=== PATIENT | male | born 1975 ===

== ENCOUNTER 2017-02-25 16:34 | Emergency (ER) | payer OTHER ==
[~2017-02-25 16:34] MED LIST: fentaNYL-PF 50 mCg/mL 2 mL Inj IVPUSH PRN
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
[2017-02-25] MEDS ORDERED: fentaNYL-PF 50 mCg/mL 2 mL Inj IVPUSH PRN (16:40)
[2017-02-25] MEDS ORDERED: Ondansetron 2 mg/mL 2 mL Inj IVPUSH PRN (16:40)
[2017-02-25] MEDS ORDERED: Ketamine 100 mg/mL 5 mL Inj IV ONE (16:45)
[2017-02-25] MEDS ORDERED: fentaNYL-PF 50 mCg/mL 2 mL Inj ONE ×2 (16:45→16:47)
[2017-02-25 16:55] LABS: BASOPHILS % (AUTO) 0.4 % (0-3); EOSINOPHILS % (AUTO) 1.1 % (0-5); MONOCYTES % (AUTO) 6.4 % (4-12); Mean Corpuscular Hemoglobin 29.8 pg (27.0-35.0); Mean Corpuscular Volume 87.2 fL (81-100); NEUTROPHILS % (AUTO) 53.2 % (40-74); Platelet Count 259 bil/L (150-400)
--- NOTE | 2017-02-25 16:56 | DRSVH ---
PROCEDURE: X-RAY CHEST ONE VIEW, PORTABLE ([id number]) INDICATIONS: Trauma TECHNIQUE: One view of the chest was acquired. COMPARISON: None. FINDINGS: Surgical changes and devices: The patient is intubated and the endotracheal tube is 7.6 cm above the radha. Lungs and pleura: No pleural effusions or pneumothorax. Lungs are clear. Mediastinum: Mediastinal contours appear normal. Heart size is normal. Bones and chest wall: No suspicious bony lesions. Overlying soft tissues appear unremarkable. IMPRESSION: Status post intubation. No acute cardiopulmonary findings. Dictated by: Nela Owusu M.D. on 02/25/2017 at 16:54 Approved by: Nela Owusu M.D. on 02/25/2017 at 16:55
[2017-02-25] MEDS ORDERED: 0.9% Sodium Chloride 100 ML IV ONE (16:58)
[2017-02-25] MEDS ORDERED: Tranexamic Acid 100 mg/mL 10 mL Inj ONE (16:58)
--- NOTE | 2017-02-25 16:59 | DRSVH ---
PROCEDURE: X-RAY PELVIS, ONE OR TWO VIEWS ([id number]) INDICATIONS: Trauma TECHNIQUE: Single view(s) of the pelvis acquired. COMPARISON: None. FINDINGS: Bones: There is 3.3 cm diastasis of the symphysis pubis. No other fractures visualized. However, the left sacroiliac joint is poorly characterized. Soft tissues: Visualized bowel gas pattern is normal. No suspicious soft tissue calcifications. IMPRESSION: Marked symphysis pubis diastasis. Although no other fractures are visualized, this is field ited study, and diastasis of the sacroiliac joint or fracture through the sacrum is suspected consist ent with an open book fracture. CT of the pelvis recommended. Dictated by: Nela Owusu M.D. on 02/25/2017 at 16:55 Approved by: Nela Owusu M.D. on 02/25/2017 at 16:57
[2017-02-25 17:00] VITALS: O2SAT 94
[2017-02-25 17:26] LABS: Lipase 112 U/L (13-60)
[2017-02-25] MEDS ORDERED: 0.9% Sodium Chloride 250 ML IV ONE (17:35)
[2017-02-25] MEDS ORDERED: Tranexamic Acid Inj 1,000 MG in 0.9% Sodium Chloride 100 ML IV ONE (17:35)
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
== END 2017-02-25 17:20 | disposition short-term general hospital (02) ==
LOC: EDBD 16:34 → SED 16:34
DX: S33.4XXA Traumatic rupture of symphysis pubis, initial encounter (principal); S06.9X9A Unspecified intracranial injury with loss of consciousness of unspecified duration, initial encounter; S30.1XXA Contusion of abdominal wall, initial encounter; R57.1 Hypovolemic shock; V23.4XXA Motorcycle driver injured in collision with car, pick-up truck or van in traffic accident, initial encounter; Y93.89 Activity, other specified; Y99.8 Other external cause status; Y92.410 Unspecified street and highway as the place of occurrence of the external cause; I10 Essential (primary) hypertension; Z78.1 Physical restraint status
CPT/HCPCS: 36415; 36430; 51702; 71010; 72170; 80053; 83690; 85025; 86850; 86922; 94002; 96374; 96375; 99291; G0390; G0480